=== PATIENT | female | born 1970 | race Hispanic/Latino ===

== ENCOUNTER 2021-07-06 18:43 | Emergency (ER) | payer OTHER ==
[~2021-07-06] VITALS: Ht 160 cm; Wt 71.7 kg
[2021-07-07] MEDS ORDERED: IBUPROFEN 600 MG TAB PO STA (01:27)
[2021-07-07] MEDS ORDERED: IBUPROFEN600 MG PO (01:35)
[2021-07-07] MEDS ORDERED: CYCLOBENZAPRINE10 MG PO (01:36)
[2021-07-07] MEDS ORDERED: IBUPROFEN 600 MG TAB ONE (01:59)
== END 2021-07-07 01:55 | disposition home or self-care (01) ==
LOC: FSED 07-07 01:17
DX: S16.1XXA Strain of muscle, fascia and tendon at neck level, initial encounter (principal); M25.512 Pain in left shoulder; V43.52XA Car driver injured in collision with other type car in traffic accident, initial encounter; Y92.488 Other paved roadways as the place of occurrence of the external cause
CPT/HCPCS: 99282